=== PATIENT | male | born 1965 | race Two or more races ===

== ENCOUNTER 2021-04-21 05:45 | Day surgery (SDC) | payer OTHER | END 2021-04-21 10:20 | disposition home or self-care (01) | LOC: AMB-ENDOS 05:45 | PROVIDERS: ATTEND Colon & Rectal Surgery | DX: D12.4 Benign neoplasm of descending colon (principal); K64.0 First degree hemorrhoids; Z20.822 Contact with and (suspected) exposure to COVID-19 ==

== ENCOUNTER 2021-05-18 08:30 | Inpatient (IN) | payer OTHER ==
[~2021-05-18] VITALS: Ht 154.9 cm; Wt 122.5 kg
[2021-05-18] MEDS ORDERED: FENOFIBRATE160 MG PO (10:02)
[2021-05-18] MEDS ORDERED: TOPROL XL100 M1 PO (10:02)
[2021-05-18] MEDS ORDERED: LOSARTAN-HCTZ1 EAC1 PO (10:02)
[2021-05-18] MEDS ORDERED: METFORMIN HCL1000 M2 PO (10:03)
== END 2021-05-25 15:03 | disposition home or self-care (01) | DRG 331 ==
LOC: O/R 05-23 05:55 → SURH 05-23 07:00
PROVIDERS: ADMIT Colon & Rectal Surgery; ATTEND Colon & Rectal Surgery
PROC: 0DBP4ZZ Excision of Rectum, Percutaneous Endoscopic Approach (ICD-10-PCS; 2021-05-23)
PROC: 07BC3ZX Excision of Pelvis Lymphatic, Percutaneous Approach, Diagnostic (ICD-10-PCS; 2021-05-23)
PROC: 4A033R1 Measurement of Arterial Saturation, Peripheral, Percutaneous Approach (ICD-10-PCS; 2021-05-23)
PROC: 4A12X4Z Monitoring of Cardiac Electrical Activity, External Approach (ICD-10-PCS; 2021-05-23)
PROC: 3E0F7SF Introduction of Other Gas into Respiratory Tract, Via Natural or Artificial Opening (ICD-10-PCS; 2021-05-23)
PROC: 0DBN4ZZ Excision of Sigmoid Colon, Percutaneous Endoscopic Approach (ICD-10-PCS; principal; 2021-05-23 08:00)
DX: D12.4 Benign neoplasm of descending colon (principal); I11.9 Hypertensive heart disease without heart failure; G47.30 Sleep apnea, unspecified; E78.00 Pure hypercholesterolemia, unspecified